=== PATIENT | female | born 1985 | race Caucasian/White ===

== ENCOUNTER 2018-11-16 06:55 | Outpatient (CLI) | payer BC, SELFPAY ==
--- NOTE | 2018-11-16 08:41 | DI.US_ITS ---
SYMPTOM/DIAGNOSIS: MONITOR STONES N20.0, CALCULUS LEFT KIDNEY RENAL ULTRASOUND: Routine examination was performed. Comparison is 08/26/17. The right kidney measures 9.5 cm long. No renal mass, calculus or obstruction is seen. There is normal blood flow to the right kidney. The left kidney measures 10.5 cm long. There is a 3 mm echogenic focus in the lower pole which may represent a nonobstructing stone. There is minimal dilatation of the left renal collecting system. Blood flow is seen to the left kidney. The pre-void urinary bladder volume is 60 cc. Bladder wall appeared smooth. No intraluminal mass is seen. Both ureteral jets were visualized. Post void urinary bladder volume was less than 10 cc. IMPRESSION: 3 mm echogenic focus in the lower pole of the left kidney which may represent a nonobstructing stone.
== END 2018-11-16 07:15 ==
PROVIDERS: PCP Family Medicine; Visit Provider Urology
DX: N20.0 Calculus of kidney (principal)
CPT/HCPCS: 76770

== ENCOUNTER 2019-07-02 02:17 | Outpatient (CLI) | payer BC, SELFPAY ==
--- NOTE | 2019-07-02 10:26 | DI.US_ITS ---
SYMPTOM/DIAGNOSIS: MONITOR KNOWN LOWER POLE STONE N20.0, CALCULUS OF KIDNEY RENAL ULTRASOUND: Comparison is 11/16/18 The right kidney measures 10.4 cm long. No renal mass, calculus or obstruction is identified. There is blood flow to the right kidney. The left kidney measures 9.4 cm long There is a 3 mm echogenic focus in the mid to lower pole of the left kidney which appears stable and may represent a nonobstructing stone. There is blood flow to the left kidney. The pre-void urinary bladder volume is 130 cc. The bladder completely emptied upon voiding. Both ureteral jets were seen. No intraluminal mass is present. IMPRESSION: Stable left nephrolithiasis.
== END 2019-07-02 02:37 ==
PROVIDERS: PCP Family Medicine; Visit Provider Urology
DX: N20.0 Calculus of kidney (principal)
CPT/HCPCS: 76770

== ENCOUNTER 2020-05-22 10:27 | Outpatient (CLI) | payer BC, SELFPAY ==
--- NOTE | 2020-05-22 10:35 | DI.RAD_ITS ---
EXAM: 2D digital imaging was performed. CLINICAL HISTORY: left flank pain/hx of stone, Z87.442. COMPARISON: US US renal from 07/02/2019 TECHNIQUE: Supine views of the abdomen performed. FINDINGS: There is a 3 mm echogenic focus overlying the lower pole of the left kidney consistent with nephrolit hiasis. There is a rounded density overlying the midpole of the right kidney which may represent a no nobstructing stone. No other suspicious urinary tract calculi are identified. The bowel gas pattern i s nonspecific. The bones are unremarkable. IMPRESSION: 1. Left nephrolithiasis. 2. Possible right nephrolithiasis. DATA REPOSITORY: RADIATION DOSE DELIVERED:
== END 2020-05-22 10:47 ==
PROVIDERS: PCP Family Medicine; Visit Provider Nurse Practitioner Gerontology
DX: R10.32 Left lower quadrant pain (principal); N20.0 Calculus of kidney; Z87.442 Personal history of urinary calculi
CPT/HCPCS: 74018

== ENCOUNTER 2020-05-29 01:45 | Outpatient (CLI) | payer BC, SELFPAY ==
--- NOTE | 2020-05-29 08:15 | DI.US_ITS ---
EXAM: US RENAL CLINICAL HISTORY: flank pain w/ h/o of stones, calculus of lt kidney. TECHNIQUE: Hamilton scale, color and spectral Doppler were used. COMPARISON: US US renal from 07/02/2019 FINDINGS: Renal size in cm: Right: 10.2 left: 9.4 Echogenicity: Normal. Hydronephrosis: Mild dilatation of the left renal collecting system. Cyst or mass: No. Nephrolithiasis: Several echogenic shadowing foci seen within the left kidney. At least 4 foci are i dentified sonographically. The largest measures 3.7 mm. No right nephrolithiasis. Other findings: None. Bladder:Normal. Ureteral jets: Right: Visualized and unremarkable. Left: Visualized and unremarkable. Prevoid vol:92 cc Postvoid vol:0 cc DOPPLER FINDINGS: Normal and symmetric blood flow is identified. IMPRESSION: Left nephrolithiasis with mild hydronephrosis. DATA REPOSITORY:
== END 2020-05-29 02:05 ==
PROVIDERS: PCP Family Medicine; Visit Provider Nurse Practitioner Gerontology
DX: N20.0 Calculus of kidney (principal); N13.30 Unspecified hydronephrosis; R10.32 Left lower quadrant pain
CPT/HCPCS: 76770

== ENCOUNTER 2020-06-02 07:54 | Outpatient (CLI) | payer BC, SELFPAY ==
[2020-06-02 19:32] LABS: COVID-19 RT-PCR UVMMC Result Negative (Negative)
== END 2020-06-02 08:14 ==
PROVIDERS: PCP Family Medicine; Visit Provider Urology
DX: Z01.818 Encounter for other preprocedural examination (principal); Z11.59 Encounter for screening for other viral diseases
CPT/HCPCS: U0003

== ENCOUNTER 2020-06-05 08:18 | Day surgery (SDC) | payer BC, SELFPAY ==
[2020-06-05] VITALS (9 sets, daily range): BP systolic 86–112; BP diastolic 48–70; PULSE 70–98; RESP 16–22; TEMP 36–36.6; O2SAT 98–100
[2020-06-05] MEDS: Lactated Ringers 1,000 ML 80 ML IV (09:02)
--- NOTE | 2020-06-05 10:13 | HPE_ITS ---
Date of service: 06/05/20 Time of Service: 10:13 Assessment and Plan Assessment and plan (1) Left ureteral stone: Status: Acute Assessment and plan: We are not sure the exact location of her stone. We will move ahead with cystoscopy, left retrograde pyelogram and possible ureteroscopy with stone manipulation. History of Present Illness History of Present Illness Chief Complaint: Left ureteral stone Narrative: This is a 35-year-old woman who has a history of kidney stones. She has had left flank discomfort for about 1 week along with intermittent nausea. Her pain can be quite severe at times. In the past few days, she has noticed some right sided pain as well. She has also seen gross hematuria. She has not vomited. She notes that her frequency has increased due to increasing her fluids. She also states that when her fluids are increased she does not have the flank pain nor the hematuria. She has no fevers, chills, suprapubic discomfort, or urgency. Her urinalysis did not show signs of a urinary tract infection. We did not see a definite stone on KUB, but on ultrasound, she has left hydronephrosis. Based on her symptoms and history, we expect that she has a left ureteral stone but we are not sure of the exact location. She presents now for ureteroscopy with stone manipulation. Review of Systems Narrative: No fevers. c/o chills No vision change or dysphasia No diabetes or thyroid No shortness of breath, cough or hemoptysis No chest pain or palpitations c/o nausea. No hepatitis, ulcers, jaundice, diarrhea or constipation No seizures, strokes or peripheral neuropathy No bleeding disorders or anemia No gout PFSH Social History Smoking/Tobacco Use Status: Former Tobacco Use Quit Date: 12/01/02 Alcohol Intake: current Alcohol Intake frequency: a few times a week Alcohol type: hard liquor Drug use: Never Substance use type: does not use Do you feel safe at home: Yes Do you feel safe in your relationship?: Yes Meds Home Medications and Allergies Home Medications Medication Instructions Recorded Confirmed Type ondansetron 4 mg disintegrating 4 mg PO Q6H PRN #10 tab 05/22/20 06/05/20 Rx tablet tamsulosin 0.4 mg capsule 0.4 mg PO DAILY #14 cap 05/22/20 06/05/20 Rx Allergies Allergy/AdvReac Type Severity Reaction Status Date / Time wheat Allergy Intermediate celiac Unverified 06/05/20 08:32 disease hydrocodone AdvReac Intermediate Nausea Unverified 06/05/20 08:32 morphine AdvReac Intermediate Nausea Unverified 06/05/20 08:32 Exam Const General: cooperative, comfortable and well developed Neck Neck: supple Resp Effort & Inspection: normal respiratory effort Auscultation: clear to auscultation bilaterally Cardio Rate: regular rate Rhythm: regular rhythm GI Palpation: soft and no masses Neuro General: patient alert, patient awake and patient oriented x3 Results Last Vital Signs Temp 36.5 C 06/05/20 08:27 Pulse 98 H 06/05/20 08:27 Resp 18 06/05/20 08:27 BP 112/70 06/05/20 08:27 Pulse Ox 100 06/05/20 08:27 COVID-19 Screening Have you, or has anyone in your household, traveled outside of [place] in the last 14 days?: NO Had IN PERSON contact w/suspected or confirmed C-19 person: No
--- NOTE | 2020-06-05 11:30 | DI.RAD_ITS ---
EXAM: XR RETROGRADE IN OR CLINICAL HISTORY: left ureteral stone. TECHNIQUE: 2D and realtime digital imaging was performed. FINDINGS: Fluoroscopy was utilized by Dr. Rajput During the retrograde evaluation of the renal collecting system . Please refer to the procedure report for complete details. Fluoro time: 28.6 sec RADIATION DOSE DELIVERED: 2.97 mGy
[2020-06-05] MEDS: ceFAZolin 1 GM/50 ML BAG IVPB (11:45)
[2020-06-05] MEDS: Lidocaine 2% Jelly 6 ML SYR (11:58)
[2020-06-05] MEDS: Omnipaque 300 MG/ML 50 ML BTL (12:15)
--- NOTE | 2020-06-05 12:21 | W.PM.DSUDISC ---
Discharge Plan Disposition Patient Disposition: HOME Condition: Stable Discharge Details Reason For Visit: ureteral stone Attending Provider: Lobo Rajput Primary Care Provider: Guillermo Alexander Home Meds and New Rx's Prescriptions: New ketorolac 10 mg tablet 10 mg PO Q8H PRN (Reason: pain) 5 Days Qty: 15 RF: 0 tramadol 50 mg tablet 50 mg PO Q6H MDD 4 PRNQty: 12 RF: 0 No Action tamsulosin [Flomax] 0.4 mg capsule 0.4 mg PO DAILY Qty: 14 RF: 0 ondansetron 4 mg tablet,disintegrating 4 mg PO Q6H PRN (Reason: nausea and vomiting) Qty: 10 RF: 0 Discharge Instructions Additional Instructions: No need to strain urine Followup 4 to 6 weeks with renal US Activity:: Activity as Tolerated Shower/Bathe:: 24 hours Diet:: As Tolerated Discharge Orders Discharge Orders: Discharge Order (Routine); Ordered 06/05/20 Ordered By: Lobo Rajput DS: Diagnosis Discharge Diagnosis (1) Left ureteral stone: Status: Acute
--- NOTE | 2020-06-05 12:26 | ROE_ITS ---
Date of service: 06/05/20 Time of Service: 12:26 Operative Note Operative Note DATE OF PROCEDURE: 06/05/20 PRE-OP DIAGNOSIS: Left ureteral stone POST-OP DIAGNOSIS: same PROCEDURE: Cystoscopy, left retrograde pyelogram, left flexible ureteroscopy, basket extraction of left ureteral stone SURGEON: Lobo Rajput ANESTHESIA: other (General) ESTIMATED BLOOD LOSS: 10 PATHOLOGY: other (Stone for chemical analysis) COMPLICATIONS: None Patient was transported to: PACU Patient's condition: stable Indications: This is a 35-year-old woman who has a history of urolithiasis. For the past week, she has had left flank and nausea. Her renal ultrasound showed left hydronephrosis. She presents for stone manipulation Findings: Proximal left ureteral stone Procedure Description: The patient was brought to the operating room on 06/05/2020. She was given preoperative IV antibiotics. After successful induction of general anesthesia, she was placed in the dorsal lithotomy position. Her genitalia was prepped and draped. 2% Xylocaine jelly was instilled into the urethra to act as a local anesthetic. A 22 Romanian rigid cystoscope was passed through the urethra into the bladder. The urethra and bladder were inspected with a 30 degree lens. Both ureteral orifice ease appeared normal with no blood coming from either side. The left ureteral orifice was cannulated with a 6 Romanian access catheter. A retrograde film was obtained by injecting Omnipaque through the access catheter under fluoroscopic guidance. A small filling defect was seen in the proximal ureter. There is no high-grade hydronephrosis seen. We then passed a Glidewire through the access catheter and maneuvered the wire up the remainder of the ureter. The access catheter was removed and was replaced with a dual-lumen catheter. A second wire was then positioned. We chose 1 of the wires as a working wire and the other as a safety wire. A ureteral access sheath was then advanced over the working wire. The tip of the sheath was positioned in the proximal ureter. The working wire was then removed. A flexible ureteroscope was then passed through the access sheath. The stone was visualized in the proximal ureter and pushed back up into the renal pelvis. The stone was then grasped and a ZeroTip stone basket and removed in its entirety. The stone was sent to pathology for chemical analysis. The scope was then reintroduced and the ureter was inspected. No ureteral abrasions or defects were seen, so we elected not to place a ureteral stent. The safety wire and ureteral access sheath were then removed. The patient tolerated this procedure well with no complications. She was taken to the recovery room in stable condition.
[2020-06-05] MEDS: fentaNYL 100 MCG/2 ML VIAL IVP (12:48)
[2020-06-05] MEDS: Phenazopyridine 200 MG TAB PO (13:42)
[2020-06-05] MEDS: traMADol 50 MG TAB PO (13:43)
[2020-06-08 05:02] LABS: Source: Left Ureter
== END 2020-06-05 14:55 | disposition home or self-care (01) ==
PROVIDERS: PCP Family Medicine; Visit Provider Urology
PROC: (CPT 52352; principal; 2020-06-05 10:00)
DX: N20.1 Calculus of ureter (principal); Z87.442 Personal history of urinary calculi
CPT/HCPCS: 52352; NC; 74420; 82365; J0690; J1100; J1885; J2001; J2405; J2704; J3010; Q9967

== ENCOUNTER 2020-07-11 01:28 | Outpatient (CLI) | payer BC, SELFPAY ==
--- NOTE | 2020-07-11 08:15 | DI.US_ITS ---
EXAM: US RENAL CLINICAL HISTORY: r/o hydronephrosis after ureteroscopy,lt ureteral stone,n20.1. TECHNIQUE: Hamilton scale, color and spectral Doppler were used. COMPARISON: US US RENAL from 05/29/2020 FINDINGS: Renal size in cm: Right: 10.9. Left: 10.5. Echogenicity: Normal. Hydronephrosis: No. Cyst or mass: No. Nephrolithiasis: Left nephrolithiasis. Other findings: None. Bladder:Normal. Ureteral jets: Right: Visualized and unremarkable. Left: Visualized and unremarkable. Prevoid vol:189 cc Postvoid vol:8 cc Renal color flow: Symmetric and within normal limits. IMPRESSION: 1. Left nephrolithiasis. 2. No hydronephrosis. DATA REPOSITORY:
== END 2020-07-11 01:48 ==
PROVIDERS: PCP Family Medicine; Visit Provider Urology
DX: N20.0 Calculus of kidney (principal)
CPT/HCPCS: 76770